=== PATIENT | female | born 1935 | race Caucasian/White ===

== ENCOUNTER → 2018-09-02 | Outpatient (CLI) | payer MEDICARE ==
[~2018-09-02] MED LIST: AMLO-512 PO; ASPI-1182 PO; ATOR20TA86 PO; CARV25 PO; CEPH-582 PO; DOCU100C34 PO; GABA-531 PO; HYDR10TA31 PO; MOME17N NASAL; OXYC-43 PO; PARO10TA71 PO; PREG25 PO; TICA90TA PO; VITAD1000 PO
== END | disposition home or self-care (01) ==
LOC: RADPV 11:55
PROVIDERS: ATTEND Legal Medicine
DX: I51.7 Cardiomegaly (principal); J90 Pleural effusion, not elsewhere classified; J98.11 Atelectasis; R06.02 Shortness of breath; I50.9 Heart failure, unspecified